=== PATIENT | female | born 1945 | race Caucasian/White ===

== ENCOUNTER 2017-01-05 12:18 | Emergency (ER) | payer OTHER ==
--- NOTE | 2017-01-05 12:26 | EDPHY ---
HPI/HX/ROS/PE/MDM Narrative: CHIEF COMPLAINT: Dysphasia. HPI: The patient is a 71-year-old female, brought in by EMS, presenting with sudden onset of dysphasia. The patient noticed she was speaking in gargles. She drove herself to her PCPs office. By the time she arrived her symptoms had subsided. The patient states she has experienced this in the past after eating dark chocolate. She continues to have aphasia, stating she is having slight difficulty recalling things. She additionally notes that she has been under increased stress lately. She denies numbness or tingling in her extremities. BP during transport was 128/82. REVIEW OF SYSTEMS: Aside from elements discussed in the HPI, a comprehensive 10-point review of systems was reviewed and is negative. PMH: Ocular migraines. SOCIAL HISTORY: Single. Lives in [place]. PHYSICAL EXAM: General: Patient is alert, in no acute distress. ENT: Eyes are normal to inspection. ENT inspection normal. Neck: Normal inspection. Full range of motion. Respiratory: No respiratory distress. Breath sounds normal bilaterally. Cardiovascular: Regular rate and rhythm. Strong peripheral pulses. Abdomen: The abdomen is nontender to palpation. There are no peritoneal signs. There are normal bowel sounds. Back: Normal to inspection. No tenderness to palpation. Skin: Normal color. No rash. Warm and dry. Extremities: Normal appearance. Full range of motion. Neuro: Oriented x3. Normal motor function. Normal sensory function. ED Course: Patient presents with episode of dysphasia. She states she has experienced this in the past. She continue to feel aphasic. Patient has not had an MRI in the past. Plan for brain MRI. I will check basic labs and Troponin. An MRI of the brain was obtained. The results were called to me by the radiologist. No sign of stroke. See the full radiology report in the imaging section. 1:30 p.m.: I discussed findings with the patient. I offered admission and she declined. MDM: This patient presents with sudden onset of aphasia which has now completely resolved. This has happened to her several times in the past and appears to be linked to her eating dark chocolate, which makes complex migraine a likely possibility. We performed an extensive workup in the ED including MRI shahida and labs, all of which are negative. On re-evaluation, her neuro exam remains normal. I offered her admission for full TIA workup but she declines. - Data Points Imaging Results: Imaging Impressions Brain MRI 01/05/17 12:24 Impression: 1. Mild periventricular and deep hemispheric white matter change that can be seen with small vessel ischemic disease. No evidence for acute infarct. 2. Small focus of hemosiderin deposition in right parietal lobe which could be secondary to cavernous angioma, prior trauma, or amyloid angiopathy. 3. Mild chronic sinus-related change. Results called and discussed with Ab Moe M.D. on January 05, 2017 at 1330 hours. [id number] Laboratory Results: Laboratory Results 01/05/17 12:29 01/05/17 12:29 01/05/17 01/05/17 01/05/17 12:29 12:29 12:29 WBC 7.05 10^3/uL 10^3/uL (3.80-9.50) RBC 4.35 10^6/uL 10^6/uL (4.18-5.33) Hgb 13.6 g/dL g/dL (12.6-16.3) Hct 40.6 % % (38.0-47.0) MCV 93.3 fL fL (81.5-99.8) MCH 31.3 pg pg (27.9-34.1) MCHC 33.5 g/dL g/dL (32.4-36.7) RDW 12.8 % % (11.5-15.2) Plt Count 238 10^3/uL 10^3/uL (150-400) MPV 9.7 fL fL (8.7-11.7) Neut % (Auto) 58.5 % % (39.3-74.2) Lymph % (Auto) 20.7 % % (15.0-45.0) [place] % (Auto) 10.2 % % (4.5-13.0) Eos % (Auto) 9.6 % H % (0.6-7.6) Baso % (Auto) 0.7 % % (0.3-1.7) Nucleat RBC Rel Count 0.0 % % (0.0-0.2) Absolute Neuts (auto) 4.12 10^3/uL 10^3/uL (1.70-6.50) Absolute Lymphs (auto) 1.46 10^3/uL 10^3/uL (1.00-3.00) Absolute Monos (auto) 0.72 10^3/uL 10^3/uL (0.30-0.80) Absolute Eos (auto) 0.68 10^3/uL H 10^3/uL (0.03-0.40) Absolute Basos (auto) 0.05 10^3/uL 10^3/uL (0.02-0.10) Absolute Nucleated RBC 0.00 10^3/uL 10^3/uL (0-0.01) Immature Gran % 0.3 % % (0.0-1.1) Immature Gran # 0.02 10^3/uL 10^3/uL (0.00-0.10) PT 13.4 SEC SEC (12.0-15.0) INR 1.03 (0.83-1.16) APTT 27.0 SEC SEC (23.0-38.0) Sodium 140 mEq/L mEq/L (134-144) Potassium 4.0 mEq/L mEq/L (3.5-5.2) Chloride 106 mEq/L mEq/L (97-110) Carbon Dioxide 24 mEq/l mEq/l (22-31) Anion Gap 10 mEq/L mEq/L (8-16) BUN 12 mg/dL mg/dL (7-23) Creatinine 0.7 mg/dL mg/dL (0.6-1.0) Estimated GFR > 60 Glucose 114 mg/dL H mg/dL (70-100) Calcium 9.2 mg/dL mg/dL (8.5-10.4) Troponin I < 0.012 ng/mL ng/mL (0-0.034) General Initial Vital Signs: Initial Vital Signs Temperature (C) 37.1 C 01/05/17 12:27 Heart Rate 85 01/05/17 12:27 Respiratory Rate 17 01/05/17 12:27 Blood Pressure 140/86 H 01/05/17 12:27 O2 Sat (%) 94 01/05/17 12:27 O2 Delivery Mode Room Air Allergies/Adverse Reactions: Penicillins Allergy (Verified 01/05/17 12:27) finger swelling Home Medications: Medication Instructions Recorded Hormones 01/05/17 Departure - Departure Disposition: Home, Routine, Self-Care Clinical Impression: TIA (transient ischemic attack) Qualifiers: Transient cerebral ischemia type: unspecified Qualified Code(s): G45.9 - Transient cerebral ischemic attack, unspecified Condition: Good Instructions: Transient Ischemic Attack (ED) Additional Instructions: Please followup with your primary care physician as needed. Return to the Emergency Department with new or worsening symptoms. Referrals: KEN MONK [Primary Care Provider] - As per Instructions Report Scribed for: Ab Moe Report Scribed by: Kirstin Shaw Date of Report: 01/05/17 Time of Report: 12:33 Physician Review and Approval Statement: Portions of this note were transcribed by a biomedical equipment tech. I personally performed the history, physical exam, and medical decision-making; and confirmed the accuracy of the information in the transcribed note.
[2017-01-05 12:37] LABS: % IMMATURE GRANULYOCYTES 0.3 % (0.0-1.1); ABSOLUTE IMMATURE GRANULOCYTES 0.02 10^3/uL (0.00-0.10); ADD DIFF? NO; ADD MORPH? NO; ADD SCAN? NO; ATYPICAL LYMPHOCYTE FLAG 30 (0-99); FRAGMENT RBC FLAG 0 (0-99); HEMATOCRIT 40.6 % (38.0-47.0); HEMOGLOBIN 13.6 g/dL (12.6-16.3); LEFT SHIFT FLG 0 (0-99); LIPEMIA HEMOLYSIS FLAG 80 (0-99); MEAN CELL HEMOGLOBIN 31.3 pg (27.9-34.1); MEAN CELL HEMOGLOBIN CONCENTR. 33.5 g/dL (32.4-36.7); MEAN CELL VOLUME 93.3 fL (81.5-99.8); MEAN PLATELET VOLUME 9.7 fL (8.7-11.7); PLATELET CLUMPS FLAG 0 (0-99); PLATELET COUNT 238 10^3/uL (150-400); RED BLOOD CELL COUNT 4.35 10^6/uL (4.18-5.33); RED CELL DISTRIBUTION WIDTH 12.8 % (11.5-15.2)
--- NOTE | 2017-01-05 12:38 | CPEKG ---
Heart Rate: 78 RR Interval: 769 P-R Interval: 168 QRSD Interval: 82 QT Interval: 372 QTC Interval: 424 P [place]: 85 QRS [place]: -55 T Wave [place]: 65 EKG Severity - ABNORMAL ECG - EKG Impression: SINUS RHYTHM EKG Impression: LEFT ATRIAL ABNORMALITY EKG Impression: LEFT ANTERIOR FASCICULAR BLOCK Electronically Signed By: Ab Moe 05-Jan-2017 15:11:04
[2017-01-05 12:45] LABS: INR 1.03 (0.83-1.16); PROTIME(PATIENT) 13.4 SEC (12.0-15.0)
[2017-01-05 12:53] LABS: ANION GAP 10 mEq/L (8-16); CALCIUM 9.2 mg/dL (8.5-10.4); CARBON DIOXIDE 24 mEq/l (22-31); CHLORIDE 106 mEq/L (97-110); CREATININE 0.7 mg/dL (0.6-1.0); GLOMERULAR FILTRATION RATE > 60; GLUCOSE 114 mg/dL (70-100); SODIUM 140 mEq/L (134-144)
[2017-01-05 13:04] LABS: TROPONIN I < 0.012 ng/mL (0-0.034)
[2017-01-05 13:58] VITALS: BP 142/80; PULSE 74; RESP 16; TEMP 98.2; O2SAT 96
== END 2017-01-05 13:57 | disposition home or self-care (01) ==
LOC: EDUNIT#
DX: G45.9 Transient cerebral ischemic attack, unspecified (principal)

== ENCOUNTER → 2017-02-11 | Outpatient (CLI) | payer OTHER ==
[~2017-02-11] MED LIST: IOPAMIDOL (ISOVUE 370) 100 ML BTL IV ONE
== END ==
LOC: FIMAGING 10:03
PROVIDERS: ATTEND Psychiatry & Neurology Neurology
DX: G45.9 Transient cerebral ischemic attack, unspecified (principal); R47.01 Aphasia
CPT/HCPCS: 70496; 70498; Q9967

== ENCOUNTER → 2017-02-22 | Outpatient (CLI) | payer OTHER ==
--- NOTE | 2017-02-22 19:02 | CPEEG ---
[f rep st] ELECTROENCEPHALOGRAM DATE OF STUDY: 02/22/2017 INTERPRETATION: This 4-hour video EEG recording is normal. There were no potentially epileptogenic abnormalities present in the awake or sleep studies. During the video EEG monitoring session, the patient denied any clinical events. REPORT: This 4-hour video EEG contains 10 Hz alpha to the posterior head regions. There was no abn ormal activation at rest, during photic stimulation, or hyperventilation. The patient became drowsy and intermittently fell asleep during the study. During drowsiness, the patient had intermittent t emporal transients, maximal left. This was a normal drowsy finding. There was no abnormal activati on during drowsiness, sleep, or during times of arousal. The patient did not have any clinical even ts during the video EEG monitoring session. . /[id number]/MODL
== END ==
LOC: FCPNEURO 08:49
PROVIDERS: ATTEND Psychiatry & Neurology Neurology
DX: G45.9 Transient cerebral ischemic attack, unspecified (principal); R47.01 Aphasia

== ENCOUNTER → 2017-03-23 | Outpatient (CLI) | payer OTHER | LOC: BHFA 14:00 | PROVIDERS: ATTEND Internal Medicine Cardiovascular Disease | DX: G45.9 Transient cerebral ischemic attack, unspecified (principal) ==

== ENCOUNTER → 2017-04-11 | Outpatient (CLI) | payer OTHER | LOC: BHFA 10:00 | PROVIDERS: ATTEND Internal Medicine Cardiovascular Disease | DX: G45.9 Transient cerebral ischemic attack, unspecified (principal) ==

== ENCOUNTER → 2017-04-12 | Outpatient (CLI) | payer OTHER | LOC: BHFA 10:45 | PROVIDERS: ATTEND Internal Medicine | DX: G45.9 Transient cerebral ischemic attack, unspecified (principal) ==

== ENCOUNTER → 2017-05-12 | Outpatient (CLI) | payer OTHER | LOC: FIMAGING 15:02 | PROVIDERS: ATTEND Obstetrics & Gynecology | DX: Z12.31 Encounter for screening mammogram for malignant neoplasm of breast (principal); Z80.3 Family history of malignant neoplasm of breast | CPT/HCPCS: G0202 ==

== ENCOUNTER → 2017-05-20 | Outpatient (CLI) | payer OTHER | LOC: FIMAGING 10:23 | PROVIDERS: ATTEND Obstetrics & Gynecology | DX: Z12.39 Encounter for other screening for malignant neoplasm of breast (principal); N63 Unspecified lump in breast ==

== ENCOUNTER 2017-10-31 13:40 | Emergency (ER) | payer OTHER ==
--- NOTE | 2017-10-31 14:46 | EDPHY ---
H & P Time Seen by Provider: 10/31/17 14:45 HPI/ROS: Chief complaint. TIA versus migraine HPI. 72-year-old female presents emergency department with which she describes as an ocular migraine that began at noon. She saw some is exact lines and that lasted just a few minutes. She then had some word-finding difficulty and some confusion. She feels that her word-finding difficulty and confusion seem to be off and on and it is continuing. However her vision has returned to normal. She had no numbness tingling or weakness to arms or legs. No chest pain, shortness of breath or abdominal pain. She did not a headache and does not have a headache. She had similar symptoms in May 2017 with workup ROS Constitutional. no fever/chills, no weakness Eyes. Change in vision ENT. no sore throat, no nasal drainage Cardiovascular. no chest pain Respiratory. no shortness of breath, no cough Abdominal. no abdominal pain, no nausea/vomiting, no diarrhea . no problems urinating MS. no calf pain/swelling, no neck/back pain, no joint pain Skin. no rash Lymph. no swollen glands Neuro. Confusion and word-finding difficulty Past Medical/Surgical History: Past medical history for ocular migraines Social History: , nonsmoker, no alcohol Smoking Status: Former smoker Physical Exam: General Appearance: Alert well-developed female no distress vital signs Eyes: Pupils equal and round no pallor or injection. ENT, Mouth: Mucous membranes are moist. Respiratory: There are no retractions, lungs are clear to auscultation. Cardiovascular: Regular rate and rhythm. Gastrointestinal: Abdomen is soft and nontender, no masses, bowel sounds normal. Neurological: Awake and alert, sensory and motor exams grossly normal. Speech is normal. Cranial nerves are normal. There is no pronator drift. Finger pressure are prior bilat Skin: Warm and dry, no rashes. Musculoskeletal: Neck is supple nontender. Extremities symmetrical, full range of motion. Psychiatric: Patient is oriented X 3, there is no agitation. Constitutional: Initial Vital Signs Temperature (C) 36.6 C 10/31/17 13:46 Heart Rate 84 10/31/17 13:46 Respiratory Rate 16 10/31/17 13:46 Blood Pressure 128/75 H 10/31/17 13:46 O2 Sat (%) 91 L 10/31/17 13:46 O2 Delivery Mode Room Air Allergies/Adverse Reactions: Penicillins Allergy (Verified 01/05/17 12:27) finger swelling Home Medications: Medication Instructions Recorded Hormones 01/05/17 Medical Decision Making - Diagnostics EKG Interpretation: EKG interpreted by me shows normal sinus rhythm normal interval. There is left axis deviation. There is left anterior fascicular block. QRS is normal there is no significant ST elevation or depression. No arrhythmia. Rate is 89 EKG not changed from a previous EKG January 2017 Imaging Results: Imaging Impressions Head CT 10/31/17 15:13 Impression: 1. No acute intracranial hemorrhage or evidence of acute ischemia. 2. Ethmoid and right maxillary sinus disease. Findings discussed with Emergency Department physician, Jasson Hawthorne on 2017, 15:49. Noncontrast head CT is normal ED Course/Re-evaluation: On re-evaluation patient has no symptoms; she and I discussed imaging lab EKG findings. We discussed treatment plan including recommendation for admission or MRI. She declines Both. I consulted discussed the case with Dr. Orozco who reviewed the workup by Dr. Luevano. The patient has had a full workup since her episode in January 2017. Workup has been entirely normal. 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 She has apparently declined management for these episodes. Dr. Orozco recommends no further workup in the emergency department today. This is discussed with the patient and she understands and agrees Differential Diagnosis: I considered TIA, CVA, migraine. - Data Points Laboratory Results: Laboratory Results 10/31/17 13:40 10/31/17 13:40 10/31/17 10/31/17 10/31/17 14:56 13:40 13:40 WBC RBC Hgb Hct MCV MCH MCHC RDW Plt Count MPV Neut % (Auto) Lymph % (Auto) [place] % (Auto) Eos % (Auto) Baso % (Auto) Nucleat RBC Rel Count Absolute Neuts (auto) Absolute Lymphs (auto) Absolute Monos (auto) Absolute Eos (auto) Absolute Basos (auto) Absolute Nucleated RBC Immature Gran % Immature Gran # PT 13.1 SEC SEC (12.0-15.0) INR 0.97 (0.83-1.16) Sodium 144 mEq/L mEq/L (135-145) Potassium 3.9 mEq/L mEq/L (3.5-5.2) Chloride 104 mEq/L mEq/L (97-110) Carbon Dioxide 26 mEq/l mEq/l (22-31) Anion Gap 14 mEq/L mEq/L (8-16) BUN 14 mg/dL mg/dL (7-23) Creatinine 0.8 mg/dL mg/dL (0.6-1.0) Estimated GFR > 60 Glucose 95 mg/dL mg/dL (70-100) Calcium 9.6 mg/dL mg/dL (8.5-10.4) Urine Color PALE YELLOW Urine Appearance CLEAR Urine pH 7.0 (5.0-7.5) Ur Specific [place] 1.005 (1.002-1.030) Urine Protein NEGATIVE (NEGATIVE) Urine Ketones NEGATIVE (NEGATIVE) Urine Blood NEGATIVE (NEGATIVE) Urine Nitrate NEGATIVE (NEGATIVE) Urine Bilirubin NEGATIVE (NEGATIVE) Urine Urobilinogen NEGATIVE EU EU (0.2-1.0) Ur Leukocyte Esterase NEGATIVE (NEGATIVE) Urine Glucose NEGATIVE (NEGATIVE) 10/31/17 13:40 WBC 5.29 10^3/uL 10^3/uL (3.80-9.50) RBC 4.29 10^6/uL 10^6/uL (4.18-5.33) Hgb 13.8 g/dL g/dL (12.6-16.3) Hct 41.0 % % (38.0-47.0) MCV 95.6 fL fL (81.5-99.8) MCH 32.2 pg pg (27.9-34.1) MCHC 33.7 g/dL g/dL (32.4-36.7) RDW 13.1 % % (11.5-15.2) Plt Count 223 10^3/uL 10^3/uL (150-400) MPV 10.4 fL fL (8.7-11.7) Neut % (Auto) 57.5 % % (39.3-74.2) Lymph % (Auto) 24.8 % % (15.0-45.0) [place] % (Auto) 10.0 % % (4.5-13.0) Eos % (Auto) 6.4 % % (0.6-7.6) Baso % (Auto) 0.9 % % (0.3-1.7) Nucleat RBC Rel Count 0.0 % % (0.0-0.2) Absolute Neuts (auto) 3.04 10^3/uL 10^3/uL (1.70-6.50) Absolute Lymphs (auto) 1.31 10^3/uL 10^3/uL (1.00-3.00) Absolute Monos (auto) 0.53 10^3/uL 10^3/uL (0.30-0.80) Absolute Eos (auto) 0.34 10^3/uL 10^3/uL (0.03-0.40) Absolute Basos (auto) 0.05 10^3/uL 10^3/uL (0.02-0.10) Absolute Nucleated RBC 0.00 10^3/uL 10^3/uL (0-0.01) Immature Gran % 0.4 % % (0.0-1.1) Immature Gran # 0.02 10^3/uL 10^3/uL (0.00-0.10) PT INR Sodium Potassium Chloride Carbon Dioxide Anion Gap BUN Creatinine Estimated GFR Glucose Calcium Urine Color Urine Appearance Urine pH Ur Specific [place] Urine Protein Urine Ketones Urine Blood Urine Nitrate Urine Bilirubin Urine Urobilinogen Ur Leukocyte Esterase Urine Glucose Medications Given: Discontinued Medications Sodium Chloride (Ns) 1,000 mls @ 0 mls/hr IV ONCE ONE; Wide Open PRN Reason: Protocol Stop: 10/31/17 15:13 Last Admin: 10/31/17 15:56 Dose: 1,000 mls Departure - Departure Disposition: Home, Routine, Self-Care Clinical Impression: Migraine 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 Follow up with Dr. Luevano Referrals: Patient,NotPresent [Unknown] - As per Instructions Haresh Luevano MD [Medical Doctor] - 5-7 days, call for appt.
[2017-10-31] MEDS ORDERED: NS 1,000 ML IV ONE (15:12)
[2017-10-31 15:19] LABS: PLATELET COUNT 223 10^3/uL (150-400)
[2017-10-31 15:29] LABS: INR 0.97 (0.83-1.16); PROTIME(PATIENT) 13.1 SEC (12.0-15.0)
--- NOTE | 2017-10-31 15:48 | CPEKG ---
Heart Rate: 69 RR Interval: 870 P-R Interval: 180 QRSD Interval: 84 QT Interval: 420 QTC Interval: 450 P [place]: 85 QRS [place]: -63 T Wave [place]: 65 EKG Severity - ABNORMAL ECG - EKG Impression: SINUS RHYTHM EKG Impression: LEFT ANTERIOR FASCICULAR BLOCK Electronically Signed By: Jasson Hawthorne 31-Oct-2017 22:34:41
[2017-10-31 17:10] VITALS: BP 114/78; PULSE 82; RESP 14; TEMP 97.7; O2SAT 95
== END 2017-10-31 17:09 | disposition home or self-care (01) ==
LOC: EDUNIT#
DX: G43.109 Migraine with aura, not intractable, without status migrainosus (principal); E86.9 Volume depletion, unspecified; Z87.891 Personal history of nicotine dependence

== ENCOUNTER → 2018-05-15 | Outpatient (CLI) | payer OTHER | LOC: FIMAGING 11:24 | PROVIDERS: ATTEND Obstetrics & Gynecology | DX: Z12.31 Encounter for screening mammogram for malignant neoplasm of breast (principal); Z80.3 Family history of malignant neoplasm of breast ==

== ENCOUNTER → 2018-12-12 | Outpatient (CLI) | payer OTHER ==
[~2018-12-12] MED LIST changes: +GADOBUTROL 10 ML VIAL IVP ONE; -IOPAMIDOL (ISOVUE 370) 100 ML BTL IV ONE
== END ==
LOC: FIMAGING 09:48
PROVIDERS: ATTEND Physician Assistant
DX: R10.2 Pelvic and perineal pain (principal); M67.951 Unspecified disorder of synovium and tendon, right thigh; M67.952 Unspecified disorder of synovium and tendon, left thigh; Z87.39 Personal history of other diseases of the musculoskeletal system and connective tissue
CPT/HCPCS: 72197; A9585